=== PATIENT | female | born 1960 | race African-American/Black ===

== ENCOUNTER 2021-02-27 03:17 | Emergency (ER) | payer MEDICAID ==
[~2021-02-27] VITALS: Ht 154.9 cm; Wt 79.4 kg
[2021-02-27] MEDS ORDERED: ONDANSETRON ODT 4 MG TAB.RAPDIS SL ONE (03:45)
[2021-02-27] MEDS ORDERED: MECLIZINE HCL 25 MG TABLET PO ONE (03:45)
[2021-02-27] MEDS ORDERED: ONDANSETRON ODT 4 MG TAB.RAPDIS ONE (03:54)
[2021-02-27] MEDS ORDERED: MECLIZINE HCL 25 MG TABLET ONE (03:54)
--- NOTE | 2021-02-27 03:56 | NUR ---
Pt out of ER for CT.
[2021-02-27 03:59] LABS: CARBON DIOXIDE 31 mmol/L (21-32); CHLORIDE 101 mmol/L (98-107); GLUCOSE 153 mg/dL (74-106); POTASSIUM 2.9 mmol/L (3.5-5.1); UREA NITROGEN, BLOOD 17 mg/dL (7-18)
[2021-02-27 04:01] LABS: HEMATOCRIT 39.3 % (31.2-41.9); MEAN CORPUSCULAR HEMOGLOBIN 27.5 uug (24.7-32.8); MEAN CORPUSCULAR VOLUME 80.8 fL (75.5-95.3); PLATELET COUNT (AUTO) 139 K/uL (179-408)
[2021-02-27 04:05] LABS: ALANINE AMINOTRANSFERASE 22 U/L (14-59); ALKALINE PHOSPHATASE 87 U/L (50-136); ASPARTATE AMINOTRANSFERASE 18 U/L (15-37); BILIRUBIN,DIRECT < 0.1 mg/dL (0.0-0.2); BILIRUBIN,TOTAL 0.3 mg/dL (0.2-1.0); TOTAL PROTEIN, SERUM 7.3 g/dL (6.4-8.2)
--- NOTE | 2021-02-27 04:06 | NUR ---
Patient back from ct scan with no distress noted.
[2021-02-27] MEDS ORDERED: POTASSIUM CHLORIDE 20 MEQ TAB.PRT.SR PO ONE (04:45)
[2021-02-27] MEDS ORDERED: POTASSIUM CHLORIDE 20 MEQ TAB.PRT.SR ONE (04:51)
--- NOTE | 2021-02-27 05:38 | NUR ---
Patient able to ambulate to restroom with steady gait. She states that dizziness "is alot better now."
--- NOTE | 2021-02-27 06:14 | NUR ---
Dr Jose into re eval patient. Patient ambulated around unit with steady gait. No distress noted.
[2021-02-27 06:29] LABS: *BILIRUBIN,URIN NEGATIVE (NEGATIVE); *BLOOD, URINE NEGATIVE (NEGATIVE); *CLARITY,URINE CLEAR (CLEAR); *COLOR,URINE YELLOW (YELLOW); *KETONES,URINE NEGATIVE (NEGATIVE); *UROBILINOGEN,URINE 0.2 E.U./dl (NORMAL); LEUKOCYTE ESTERASE ,URINE NEGATIVE (NEGATIVE); NITRITE, URINE NEGATIVE (NEGATIVE); PH,URINE 5.5 (5.0-8.0); UGLUCOSE NEGATIVE (NEGATIVE)
[2021-02-27] MEDS ORDERED: MAGNESIUM OXIDE 400 MG TABLET PO ONE (06:30)
[2021-02-27] MEDS ORDERED: MECL-159 PO (06:31)
[2021-02-27] MEDS ORDERED: MAGNESIUM OXIDE 400 MG TABLET ONE (06:43)
[2021-02-27 06:56] VITALS: BP 118/74
--- NOTE | 2021-02-27 07:01 | NUR ---
Patient discharged to home in stable condition with son taking patient home. Written and verbal after care instructions given. Patient verbalizes understanding of instructions. Stressed follow up or return to ER for worsening s/s.
== END 2021-02-27 07:01 | disposition home or self-care (01) ==
LOC: ER 03:20
DX: R42 Dizziness and giddiness (principal); I10 Essential (primary) hypertension; R94.31 Abnormal electrocardiogram [ECG] [EKG]; E87.6 Hypokalemia; D69.6 Thrombocytopenia, unspecified
CPT/HCPCS: 36415; 70030-TC; 70450; 85025; 85730; 93005; A4663; J8597; Q0162

== ENCOUNTER 2022-05-17 12:34 | Emergency (ER) | payer MEDICAID ==
[~2022-05-17] VITALS: Ht 154.9 cm; Wt 81.6 kg
[~2022-05-17 12:34] MED LIST: MECL-159 PO
--- NOTE | 2022-05-17 12:55 | NUR ---
Dr Fisher at the bedside for MSE.
[2022-05-17] MEDS ORDERED: MECLIZINE HCL 25 MG TABLET ONE (13:07)
[2022-05-17] MEDS ORDERED: IV NORMAL SALINE 1000 ML BAG IV ONE (13:15)
[2022-05-17] MEDS ORDERED: MECLIZINE HCL 25 MG TABLET PO ONE (13:15)
[2022-05-17 13:20] LABS: HEMATOCRIT 41.8 % (31.2-41.9); MEAN CORPUSCULAR HEMOGLOBIN 27.2 uug (24.7-32.8); MEAN CORPUSCULAR VOLUME 81.3 fL (75.5-95.3); PLATELET COUNT (AUTO) 157 K/uL (179-408)
[2022-05-17 13:24] LABS: CREATININE 1.1 mg/dL (0.6-1.3); POTASSIUM 3.8 mmol/L (3.5-5.1)
[2022-05-17] MEDS ORDERED: MECL-159 PO (14:24)
--- NOTE | 2022-05-17 14:30 | NUR ---
Pt denies dizziness and able to walk w/ steady gait.
--- NOTE | 2022-05-17 14:43 | NUR ---
IV removed. Catheter intact and site benign. Pressure and 4x4 gauze applied to site. No bleeding noted.
[2022-05-17 14:44] VITALS: BP 129/70
--- NOTE | 2022-05-17 14:44 | NUR ---
Patient discharged to home in stable condition. Written and verbal after care instructions given. Patient verbalizes understanding of instructions. Stressed follow up or return to ER for worsening s/s.
== END 2022-05-17 14:45 | disposition home or self-care (01) ==
LOC: ER 12:34
DX: R42 Dizziness and giddiness (principal); R73.9 Hyperglycemia, unspecified; Z88.0 Allergy status to penicillin; Z88.2 Allergy status to sulfonamides
CPT/HCPCS: 99284; 96360; 80048; 85025; 36415; 93005; J7040; A4663; J8597